=== PATIENT | female | born 1985 | race American Indian/Alaskan Native ===

== ENCOUNTER 2021-06-06 12:20 | Outpatient (CLI) | payer OTHER, SELFPAY ==
[2021-06-06 14:27] LABS: Absolute Lymphocyte Count 2.49 X10^3/uL (0.83-4.51); Absolute Neutrophil Count 2.2 X10^3/uL (2.0-7.7); Basophil# 0.01 X10^3/uL; Basophil% 0.2 % (0-1); Eosinophil# 0.05 X10^3/uL; Eosinophils% 0.9 % (0-5); Hematocrit 38.6 % (37-47); Lymphocyte # 2.49 X10^3/ul (0.83-4.51); Lymphocyte % 46.7 % (19-41); Mean Corp Hgb Conc 33.7 g/dL (32-36); Mean Corpuscular Hgb 29.4 pg (27.0-32.0); Mean Corpuscular Volume 87.3 fL (81-99); Mean Platelet Vol. 11.6 fl (6.2-12.0); Monocyte# 0.55 X10^3/uL; Monocyte% 10.3 % (0-10); NRBC Flagged by Analyzer 0 % (0-5); Neutrophil # 2.22 X10^3/uL (2.7-7.7); Neutrophil % 41.7 % (47-70); Platelet Count 236 K/mm3 (150-450); RBC Distribution Width CV 13.8 % (11.6-14.6); RBC Distribution Width SD 44.3 fl (35.1-43.9); Red Blood Count 4.42 M/mm3 (4.2-5.4); White Blood Count 5.3 K/mm3 (4.4-11.0)
[2021-06-06 15:40] LABS: HIV - WCH Non-Reactive (Nonreactive); Hepatitis B Surface Antigen Non-Reactive (Nonreactive); Hepatitis C Antibody Non-Reactive (Nonreactive); Rubella IgG Reactive (Nonreactive); Syphilis Antibodies Non-reactive
[2021-06-06 16:34] LABS: ALB/GLOB Ratio 0.9 RATIO (0.9-2.4); AST(SGOT) 13 U/L (15-37); Alanine Aminotransfer ALT/SGPT 29 U/L (13-56); Albumin, Serum 3.2 g/dL (3.2-5.0); Alkaline Phosphatase 58 U/L (45-117); Anion Gap 9 (5-15); BUN 7 mg/dL (7-18); BUN/Creat Ratio 14.5 RATIO (10-20); Calcium,Total 9.1 mg/dL (8.5-10.1); Chloride 106 mmol/L (98-107); Cholesterol 162 mg/dL (200); Creatinine, Serum 0.48 mg/dL (0.55-1.02); EST Glomerular Filtration Rate 156 mL/min (>60); Est Glom Filt Rate - Afr Amer 188 mL/min (>60); Globulin 3.7 g/dL (2.2-4.2); Glucose 73 mg/dL (74-106); High Density Lipoprotein 58 mg/dL; Potassium 3.9 mmol/L (3.5-5.1); Protein, Total 6.9 g/dL (6.4-8.2); Sodium Level 137 mmol/L (136-145); Triglycerides 177 mg/dL; Very Low Density Lipoprotein 35 mg/dL (5-40)
[2021-06-09 00:06] LABS: Chlamydia By Nucleic Acid AMP Negative (Negative)
[2021-06-09 14:16] LABS: Gonococcus By Nucleic Acid AMP Negative (Negative)
[2021-06-14 13:15] LABS: HPV APTIMA, High Risk Negative (Negative)
== END 2021-06-06 23:59 | disposition short-term general hospital (02) ==
PROVIDERS: Internal Medicine; Visit Provider Student in an Organized Health Care Education/Training Program
DX: Z34.81 Encounter for supervision of other normal pregnancy, first trimester (principal); Z12.4 Encounter for screening for malignant neoplasm of cervix
CPT/HCPCS: 36415; 80053; 80061; 85025; 86703; 86762; 86780; 86803; 87086; 87088; 87340; 87491; 87591; 87624; 88175; G0145

== ENCOUNTER 2021-06-27 14:06 | Outpatient (CLI) | payer OTHER, SELFPAY ==
--- NOTE | 2021-06-27 14:10 | US_ITS ---
STUDY: ULTRASOUND BREAST - RIGHT REASON FOR EXAM: Female, 35 years old. Right axillary lump. TECHNIQUE: Axial and longitudinal images of the RIGHT breast were performed with a high resolution ultrasound transducer. # OF IMAGES: 25 COMPARISON: None. FINDINGS: RIGHT Breast: Sonographic imaging of the right axilla was obtained. The lung most likely corresponds to a 14.1 cm x 5.6 x 2.6 cm lipoma. . US/Breast Limited Unilateral IMPRESSION: Findings suggestive of a lipoma in the right axilla corresponding to the palpable abnormality. ASSESSMENT CATEGORY: BIRADS Category 2: Benign. A letter regarding these results will be sent to the patient by the facility within 30 days. Electronically Signed: Elpidio Momin MD at 15:31 EST ,
== END 2021-06-27 23:59 | disposition home or self-care (01) ==
PROVIDERS: Visit Provider Student in an Organized Health Care Education/Training Program
DX: N63.31 Unspecified lump in axillary tail of the right breast (principal)
CPT/HCPCS: 76642

== ENCOUNTER 2021-07-11 09:12 | Outpatient (CLI) | payer OTHER, SELFPAY ==
[2021-07-11 09:57] LABS: Glucose Challenge Gest 1H 50g 85 mg/dL (70-140)
[2021-07-11 10:00] LABS: Protein, Urine (Random) 32.5 mg/dL (<11.9); Protein:Creat Ratio 111 mg/g CRE (0-200)
== END 2021-07-11 23:59 | disposition home or self-care (01) ==
LOC: WOBLAB 09:13
PROVIDERS: Visit Provider Student in an Organized Health Care Education/Training Program
DX: Z34.82 Encounter for supervision of other normal pregnancy, second trimester (principal)
CPT/HCPCS: 36415; 82570; 82950; 84156

== ENCOUNTER → 2021-11-27 | Outpatient (CLI) | payer OTHER, SELFPAY | END | disposition home or self-care (01) | LOC: LABSPEC 09:38 | PROVIDERS: Visit Provider Student in an Organized Health Care Education/Training Program | DX: Z36.85 Encounter for antenatal screening for Streptococcus B (principal) | CPT/HCPCS: 87077; 87081; 87186 ==

== ENCOUNTER → 2021-12-04 | Outpatient (CLI) | payer OTHER, SELFPAY ==
--- NOTE | 2021-12-04 13:29 | US_ITS ---
STUDY: OBSTETRICAL ULTRASOUND - BIOPHYSICAL PROFILE REASON FOR EXAM: Female, 36 years old. CHRONIC HYPERTENSION PRIOR ULTRASOUND: None. TECHNIQUE: Transabdominal TECHNICAL QUALITY: Adequate. FINDINGS: There is a single intrauterine fetus. The fetus is in a cephalic presentation. There is demonstrated cardiac activity with a heart rate of 125 bpm. There is a normal amniotic fluid volume. The largest amniotic fluid pocket measures 2.9 cm. The amniotic fluid index (ROS) is 9.3 cm. The placenta is fundal in location. There are Grade 2 placental changes. Age by LMP: 37 weeks, 2 days. LISA by LMP: 8.20.22. BIOPHYSICAL PROFILE: Breathing Movements (FBM): 2 Gross Body Movements (GBM): 2 Tone (FT): 2 Amniotic Fluid Volume (AFV): 2 TOTAL SCORE: 8 / 8 Incidental anatomic findings demonstrate a right testicular hydrocele and bilateral renal hydronephrosis of the fetus. US/Biophysical Prof W/O Non Stres IMPRESSION: Normal biophysical profile of 8/8. There is a single live intrauterine with a heart rate of 125 bpm. Age by LMP: 37 weeks, 2 days. LISA by LMP: 8.20.22. Incidental anatomic findings demonstrate a right testicular hydrocele and bilateral renal hydronephrosis of the fetus. Electronically Signed: Armando Tran MD at 16:34 EDT ,
== END | disposition home or self-care (01) ==
LOC: OPUS 13:22
PROVIDERS: Visit Provider Student in an Organized Health Care Education/Training Program
DX: O16.3 Unspecified maternal hypertension, third trimester (principal)
CPT/HCPCS: 76819

== ENCOUNTER 2021-12-07 11:03 | Outpatient (CLI) | payer OTHER, SELFPAY ==
[2021-12-07 11:10] VITALS: BMI 49.1
[2021-12-07 11:17] VITALS: BP 144/89; PULSE 77
[2021-12-07 11:34] VITALS: BP 148/72; PULSE 63
[2021-12-07 11:48] VITALS: BP 153/84; PULSE 75
[2021-12-07 12:03] VITALS: BP 147/78; PULSE 68
[2021-12-07 12:18] VITALS: BP 141/71; PULSE 70
--- NOTE | 2021-12-07 20:23 | OB.TRI.HP_ITS ---
HPI - General HPI Narrative LEE SANDOVAL, is a 36 F [facility] History (Updated 06/06/21 @ 16:[address] Nadeen Souza MD) Anemia Anxiety Carpal tunnel syndrome Depression Headache, migraine History of fracture History of pneumonia Hypertension Prediabetes Preventative health group home Medications ascorbate calcium (vitamin C) 500 mg tablet 500 mg PO DAILY 05/29/21 [History Last Taken Unknown] cholecalciferol (vitamin D3) 25 mcg (1,000 unit) capsule 25 mcg PO DAILY 05/29/21 [History Last Taken Unknown] cranberry 400 mg capsule 400 mg PO DAILY 05/29/21 [History Last Taken Unknown] elderberry fruit 200 mg capsule mg PO 05/29/21 [History Last Taken Unknown] prenat.vits,myranda,rda-[id number] 1 tab PO DAILY 05/29/21 [History Last Taken Unknown] Allergy/AdvReac Type Severity Reaction Status Date / Time niacin Allergy Severe Hives Verified 06/06/21 14:31 Penicillins Allergy Other Verified 12/07/21 11:15 pain killers Allergy Severe Nausea Uncoded 06/06/21 14:31 Family History Father Alcoholism Depression Mother Arthritis Cervical cancer Hypertension Uterine cancer Grandfather Cancer Myocardial infarction, Onset Age: 89 Sister Diabetes Grandmother Hyperlipemia Social History Smoking Status: Never smoker alcohol intake: former substance use type: does not use what type of physical activity do you participate in: walking and weight training frequency: 3-4 times per week NST FHR Rate Baby A Baseline: 120 Variability:: Moderate Accelerations:: 15 x 15 Decelerations:: None NST Reactive:: Yes Uterine Activity:: quiet Assessment & Plan (1) : QUALIFIERS: Weeks of gestation: 11 weeks Qualified Code(s): Z3A.11 - 11 weeks gestation of PLAN: Patient arrives with known chronic hypertension for NST. Chronic hypertension, nonsevere range blood pressures and asymptomatic on no medications. NST reactive. All reassuring will discharge home and follow-up at scheduled appointments
== END 2021-12-07 12:28 | disposition home or self-care (01) ==
LOC: WPOUT 11:08 → WP 11:08
PROVIDERS: Referring Provider Obstetrics & Gynecology; Visit Provider Obstetrics & Gynecology
DX: O10.911 Unspecified pre-existing hypertension complicating pregnancy, first trimester (principal); O09.511 Supervision of elderly primigravida, first trimester; Z3A.11 11 weeks gestation of pregnancy
CPT/HCPCS: 59025; 59050; 99218; G0378

== ENCOUNTER 2021-12-13 13:35 | Inpatient (IN) | payer OTHER, SELFPAY ==
[2021-12-13 15:02] VITALS: BP 137/70; PULSE 73; TEMP 36.9
[2021-12-13 15:10] LABS: Absolute Lymphocyte Count 2.11 X10^3/uL (0.83-4.51); Absolute Neutrophil Count 2.3 X10^3/uL (2.0-7.7); Basophil# 0.01 X10^3/uL; Basophil% 0.2 % (0-1); Eosinophil# 0.04 X10^3/uL; Eosinophils% 0.8 % (0-5); Hemoglobin 11.4 g/dL (12.0-15.0); Lymphocyte # 2.11 X10^3/ul (0.83-4.51); Mean Corp Hgb Conc 32.6 g/dL (32-36); Mean Corpuscular Hgb 29.6 pg (27.0-32.0); Mean Corpuscular Volume 90.9 fL (81-99); Mean Platelet Vol. 12.9 fl (6.2-12.0); Monocyte% 6.3 % (0-10); NRBC Flagged by Analyzer 0 % (0-5); Neutrophil # 2.33 X10^3/uL (2.7-7.7); Neutrophil % 48.5 % (47-70); Platelet Count 156 K/mm3 (150-450); RBC Distribution Width CV 14.6 % (11.6-14.6); RBC Distribution Width SD 48.5 fl (35.1-43.9); Red Blood Count 3.85 M/mm3 (4.2-5.4); White Blood Count 4.8 K/mm3 (4.4-11.0)
--- NOTE | 2021-12-13 16:52 | HP.PCM.OB_ITS ---
History and Physical Date of Admission: 12/13/21 HPI: 36-year-old G1, P0 at 38/4 weeks, LISA by LMP, admitted for induction of labor for chronic hypertension. Denies regular contractions, leaking of fluid, vaginal bleeding. Reports movement. Denies headache, vision changes, chest pain or shortness of breath, nausea or vomiting, diarrhea or constipation, fevers or chills. complicated by: Class III obesity, advanced maternal age, chronic hypertension on no medications [employer]ESP[employer]ESS[employer]IES history: G1 current Medical history: 1. Chronic hypertension 2. Class III obesity Surgical history: 1. Facial laceration repair as a child Medications: 1. Ascorbic acid 2. Vitamin D3 3. Cranberry 4. Elderberry 5. vitamin Family history: Noncontributory Social history: Denies tobacco, alcohol, drug use Allergies: 1. Niacin causes hives 2. Penicillin: Childhood allergy per her mother. 3. Opiates cause nausea Review of system: Negative otherwise stated above Physical exam: Vitals: BP 137/70, pulse 73, temp 98.4 ?F General: Resting in no acute distress HEENT: Normocephalic/atraumatic, PERRLA Cardiac: Regular rate Respiratory: No increased effort Abdomen: Soft, nontender, gravid Extremities: Minimal edema Musculoskeletal: Strength 5 out of 5 throughout all extremities Neurologic: Cranial nerves II through XII grossly intact, patellar reflexes 2/4 bilaterally Cervical exam: Fingertip/thick/high in office today FHR: 135/mod dariusz/+accel/no decel Glandorf: quiet labs Hepatitis B/hepatitis C negative HIV negative Syphilis negative Rubella immune O+ blood type Gonorrhea/chlamydia negative GBS positive Labs today within normal limits Assessment/plan: 36-year-old G1, P0 at 38/4 weeks, LISA by LMP, admitted for induction of labor for chronic hypertension. complicated by: Class III obesity, advanced maternal age, chronic hypertension on no medications ?Admit for induction of labor with Cytotec for chronic hypertension on no medications. Fluid assessment today on BPP was borderline low. Discussed with patient again today prior to induction being started, patient would like to proceed with induction. This reasonable as it is indicated for delivery between 38?30 9/6 weeks for chronic hypertension on no medications. ?GBS positive. Patient has childhood penicillin allergy. Will treat with Ancef. Ancef 2 g, followed by 1 g every 8 hours to be given. ? Patient desires Cord blood and tissue banking. Has kit with her. ? pelviectasis. Left last measuring 1.4 cm, right 0.4 cm. Requires pediatric follow-up. Assessment & Plan Assessment/Plan (1) Hypertension: QUALIFIERS: Hypertension type: primary hypertension Qualified Code(s): I10 - Essential (primary) hypertension (2) : (3) Chronic hypertension during , antepartum:
[2021-12-13] MEDS: miSOPROStol 25 MCG TABLET VAGINAL ×2 (16:56→21:09)
[2021-12-13] MEDS: Cefazolin 2 GM in 0.9% Normal Saline 100 ML IV (16:57)
[2021-12-13] MEDS: Lactated Ringers 1,000 ML 50 ML IV (16:57)
[2021-12-13 17:05] VITALS: BP 144/72; PULSE 78
[2021-12-13 19:27] VITALS: BP 136/76; PULSE 65
[2021-12-13 19:31] VITALS: TEMP 36.7
[2021-12-13 19:44] VITALS: BMI 49.6
[2021-12-13 23:00] VITALS: BP 134/67; PULSE 62
[2021-12-13 23:01] VITALS: TEMP 36.2
[2021-12-14] VITALS (111 sets, daily range): BP systolic 98–155; BP diastolic 46–83; PULSE 56–122; TEMP 25.9–37.1; O2SAT 80–100
[2021-12-14] MEDS: Cefazolin 1 GM/50 ML BAG IV ×3 (01:03→16:42)
[2021-12-14] MEDS: Oxytocin 30 units/NS 500 ml 30 UNITS/500 ML IV.SOLN IV (06:58)
--- NOTE | 2021-12-14 07:39 | PCM.PN.OB ---
Subjective Subjective Feeling moderate to painful contractions Objective Data Objective Data Vital Signs: Vital Signs Temp Pulse BP Pulse Ox 78.6 F L 78 128/79 H 100 12/14/21 07:33 12/14/21 07:31 12/14/21 07:23 12/14/21 07:31 Weight: 289 lb Body Mass Index (BMI) 49.6 Intake & Output: Intake and Output for Last 24 Hours 12/12/21 12/13/21 12/14/21 23:59 23:59 23:59 Intake Total 233.33 / 233.33 50 / 50 Balance 233.33 / 233.33 50 / 50 Lab / Micro Data Result Diagrams: 12/13/21 14:45 Labs: Laboratory Results - last 24 hr 12/13/21 14:45: WBC 4.8, RBC 3.85 L, Hgb 11.4 L, Hct 35.0 L, MCV 90.9, MCH 29.6, MCHC 32.6, RDW Std Deviation 48.5 H, RDW Coeff of Zack 14.6, Plt Count 156, MPV 12.9 H, Immature Gran % (Auto) 0.200, Neut % (Auto) 48.5, Lymph % (Auto) 44.0 H, [place] % (Auto) 6.3, Eos % (Auto) 0.8, Baso % (Auto) 0.2, Absolute Neuts (auto) 2.3, Absolute Lymphs (auto) 2.11, Nucleated RBC % 0 12/13/21 14:45: Blood Type O POSITIVE, Antibody Screen NEGATIVE Micro: Microbiology 12/13/21 14:45 Nasal Secretion SARS-CoV-2 Antigen (Rapid) - Final Physical Exam Const alert, oriented x3, no apparent distress, average body habitus, healthy appearing and well nourished HEENT normocephalic Eyes PERRL Neck full ROM Resp normal respiratory effort, no retractions and no use of accessory muscles GI GI Narrative: Soft, nontender, gravid Narrative: CE: 2-3/60/-2 AROM clear fluid Extremity normal to inspection, full ROM and no clubbing, cyanosis or edema Neuro moves all extremities and no focal motor deficits Psych mental status grossly normal, affect normal and speech normal Assessment & Plan (1) : PLAN: Pt seen and examined. AROM clear fluid.
[2021-12-14] MEDS: LACTATED RINGERS 500 ML 999 ML IV (11:49)
[2021-12-14] MEDS: fentaNYL-bupivacaine (epidural) 100 ML BAG EPIDURAL ×3 (13:22→23:04)
[2021-12-14] MEDS: Ondansetron 4 MG/2 ML Vial IV ×3 (14:22→23:24)
[2021-12-14] MEDS: Lactated Ringers 1,000 ML 200 ML IV ×2 (14:23→20:51)
[2021-12-14] MEDS: Lactated Ringers 1,000 ML 999 ML IV (17:25)
--- NOTE | 2021-12-14 19:42 | PCM.PN.OB ---
Subjective Subjective Patient now comfortable with epidural Objective Data Objective Data Vital Signs: Vital Signs Temp Pulse BP Pulse Ox 97.3 F L 75 131/65 H 99 12/14/21 19:30 12/14/21 19:41 12/14/21 19:35 12/14/21 19:41 Weight: 289 lb Body Mass Index (BMI) 49.6 Intake & Output: Intake and Output for Last 24 Hours 12/12/21 12/13/21 12/14/21 23:59 23:59 23:59 Intake Total 233.33 / 233.33 3099.01 / 3099.01 Balance 233.33 / 233.33 3099.01 / 3099.01 Lab / Micro Data Result Diagrams: 12/13/21 14:45 Micro: Microbiology 12/13/21 14:45 Nasal Secretion SARS-CoV-2 Antigen (Rapid) - Final Physical Exam Const alert, oriented x3, no apparent distress, average body habitus, healthy appearing and well nourished HEENT normocephalic and moist oral mucous membranes Eyes PERRL Neck full ROM Resp normal respiratory effort, no retractions and no use of accessory muscles GI GI Narrative: Soft, nontender, gravid Narrative: Cervical exam 4-5/70/-2 Extremity normal to inspection, full ROM and no clubbing, cyanosis or edema Neuro moves all extremities and no focal motor deficits Psych mental status grossly normal, affect normal, speech normal and activity/motor behavior normal Assessment & Plan (1) : PLAN: Patient seen and examined. Comfortable with epidural. Continue current management. Continue titrate Pitocin
[2021-12-15] VITALS (54 sets, daily range): BP systolic 109–140; BP diastolic 50–82; PULSE 56–109; RESP 16–17; TEMP 36–36.7; O2SAT 97–100; BMI 49.6
[2021-12-15] MEDS: Cefazolin 1 GM/50 ML BAG IV ×2 (01:25→09:01)
[2021-12-15] MEDS: Lactated Ringers 1,000 ML 200 ML IV ×3 (02:19→13:57)
[2021-12-15] MEDS: Ondansetron 4 MG/2 ML Vial IV (03:35)
[2021-12-15] MEDS: fentaNYL-bupivacaine (epidural) 100 ML BAG EPIDURAL ×3 (03:37→13:57)
[2021-12-15] MEDS: LACTATED RINGERS 500 ML 999 ML IV (03:58)
[2021-12-15] MEDS: 0.9% Saline Lock 10 ML Syringe IV ×4 (04:29→19:11)
[2021-12-15] MEDS: proCHLORPERazine 10 MG/2 ML Vial IV ×2 (04:35→12:50)
--- NOTE | 2021-12-15 07:32 | PCM.PN.OB ---
Subjective Subjective Pain well controlled epidural Objective Data Objective Data Vital Signs: Vital Signs Temp Pulse BP Pulse Ox 97.9 F 73 128/58 H 100 12/15/21 07:24 12/15/21 07:30 12/15/21 07:30 12/15/21 07:30 Weight: 289 lb Body Mass Index (BMI) 49.6 Intake & Output: Intake and Output for Last 24 Hours 12/13/21 12/14/21 12/15/21 23:59 23:59 23:59 Intake Total 233.33 / 233.33 3670.91 / 3670.91 1050 / 1050 Balance 233.33 / 233.33 3670.91 / 3670.91 1050 / 1050 Lab / Micro Data Result Diagrams: 12/13/21 14:45 Micro: Microbiology 12/13/21 14:45 Nasal Secretion SARS-CoV-2 Antigen (Rapid) - Final Physical Exam Const alert, oriented x3, no apparent distress, average body habitus, healthy appearing and well nourished HEENT normocephalic and moist oral mucous membranes Eyes PERRL Neck full ROM Resp normal respiratory effort, no retractions and no use of accessory muscles Extremity normal to inspection, full ROM and no clubbing, cyanosis or edema Neuro moves all extremities and no focal motor deficits Psych mental status grossly normal, affect normal, speech normal and activity/motor behavior normal Assessment & Plan (1) : PLAN: Patient seen and examined. Discussed options of treatment with patient including , high-dose Pitocin, continue current management risk benefits alternatives. Patient states understanding. All questions answered. Patient elects for high-dose Pitocin does not want at this time. Educated patient on risk for infection and prolonged labor. Patient states understanding and wished to proceed. We will increase Pitocin assuming category 1 tracing
--- NOTE | 2021-12-15 15:09 | EX.PCM.OBRPT ---
Maternal Data Information Final LISA: 12/23/21 Details Operative Information Date of Procedure: 12/15/21 Pre-Operative Diagnosis: Elective primary section, Gaviria intrauterine , chronic hypertension Post-Operative Diagnosis: Elective primary section, Gaviria intrauterine , chronic hypertension Indications Narrative: 36-year-old G1, P0 at 38/6 weeks, admitted for induction of labor. Patient desires primary section at this time. All risk, benefits, alternatives discussed with patient. Risk include but are not limited to: Risk of bleeding to the point transfusion, infection, injury to surrounding tissue including bowel/bladder potentially requiring prolonged Villareal catheter use, VTE, ICU admission. Patient were consented. Procedure Type: low transverse Type of Anesthesia: Epidural Estimated Blood Loss: 700 cc Fluids Replaced: 700 cc Findings Description of Procedure: Procedure: Patient taken to the operating room, epidural dose. Patient placed in the supine position with a left lateral tilt. Prepped and draped in the usual sterile fashion. Pfannenstiel skin incision made with scalpel and carried down through subcutaneous tissue. Fascia nicked on either side of the midline with scalpel and extended bluntly. Fang clamps placed superior fascial edge which was tented up and underlying rectus muscles were dissected off bluntly and sharply at midline using Benoit scissors. Fang clamps moved to inferior fascial edge which was tented up and underlying rectus muscles were dissected off bluntly and sharply at midline using Benoit scissors. Hemostats utilized to separate rectus muscle superiorly. Peritoneum entered bluntly and extended. Bladder blade placed. Low transverse uterine incision made with scalpel and extended bluntly. Hand placed into the uterine cavity and head elevated to the level of the hysterotomy. Bladder blade removed. Head delivered followed by body. No nuchal cord. Cord clamped and cut. Baby handed to nursing. Cord blood collected, through umbilical vein. Spontaneous delivery of placenta. Uterus exteriorized and cleared of all clots. Hysterotomy closed with a run locking stitch followed by second vertical imbricating stitch. Hemostatic. Uterus replaced into the abdominal cavity. Hysterotomy hemostatic with Bovie left closure edge. Bladder blade removed. Fascia closed with a running stitch. Subcutaneous tissue closed with interrupted stitch. Skin closed with running subcuticular stitch. At the end of the procedure all needle, lap, sponge counts were correct x3. Urine output: 200 cc Cord tissue collected by nursing in OR. For patient desired cord blood and tissue banking. A Gender: Male (1 minute): 8 (5 minute): 9 Complications Complications: None
--- NOTE | 2021-12-15 15:10 | PCM.PN.OB ---
Subjective Subjective Patient comfortable with epidural. Tired and exhausted. Still having some nausea and vomiting. Objective Data Objective Data Vital Signs: Vital Signs Temp Pulse BP Pulse Ox 97.2 F L 64 118/82 H 99 12/15/21 12:44 12/15/21 14:17 12/15/21 14:16 12/15/21 14:17 Weight: 131.088 kg Body Mass Index (BMI) 49.6 Intake & Output: Intake and Output for Last 24 Hours 12/13/21 12/14/21 12/15/21 23:59 23:59 23:59 Intake Total 233.33 / 233.33 3670.91 / 3670.91 4060.00 / 4060.00 Output Total 400 / 400 575 / 575 Balance 233.33 / 233.33 3270.91 / 3270.91 3485.00 / 3485.00 Lab / Micro Data Result Diagrams: 12/13/21 14:45 Micro: Microbiology 12/13/21 14:45 Nasal Secretion SARS-CoV-2 Antigen (Rapid) - Final Physical Exam Const alert, oriented x3 and no apparent distress Resp normal respiratory effort Cardio regular rate GI Inspection: gravid Narrative: /-1 Extremity Extremity Narrative: pedal edema NST FHR Rate Baby A Baseline: 125 Variability:: Moderate Accelerations:: 15 x 15 Decelerations:: None FHR Category:: Category I Uterine Activity:: q4-5 Assessment & Plan (1) Chronic hypertension during , antepartum: PLAN: 38/6w, induction of labor for chronic hypertension on medication. Induction of labor started on 12/13/2021. Patient is progressed throughout labor. Artificial rupture of membranes morning of 12/14/2021. Has been greater than 24 hours since rupture of membranes. Patient's cervical exam this morning around 8 AM was 6 cm. She is unchanged at this time. Patient is exhausted and desires section. Plan for primary section at this time. We will proceed in urgent but not emergent fashion. All risk, benefits, alternatives were discussed with the patient. Risk include but are not limited to: Risk of bleeding twin transfusion, infection, injury to surrounding tissue including bowel/bladder possibly requiring prolonged Villareal catheter use, VTE, ICU admission. Patient aware and consented. All questions answered. Pitocin turned off. 3 g Ancef preop with 500 mg azithromycin.
[2021-12-15] MEDS: Acetaminophen 500 MG Tablet PO (15:21)
[2021-12-15] MEDS: Sodium Citrate/Citric Acid 30 ML UDC PO (17:14)
[2021-12-15] MEDS: Ketorolac 30 MG/ML Syringe IV (19:11)
[2021-12-15] MEDS: Oxytocin 30 units/NS 500 ml 30 UNITS/500 ML IV.SOLN 167 UNITS IV (19:12)
[2021-12-15] MEDS: Acetaminophen 500 MG Tablet 1000 MG PO (21:42)
[2021-12-16] MEDS: Ketorolac 30 MG/ML Syringe IV ×3 (00:33→13:13)
[2021-12-16 00:36] VITALS: BP 131/59; PULSE 79; RESP 16; TEMP 36.1
[2021-12-16] MEDS: Acetaminophen 500 MG Tablet 1000 MG PO ×4 (03:38→21:19)
[2021-12-16 03:42] VITALS: BP 138/72; PULSE 85; RESP 18; TEMP 36.7
[2021-12-16] MEDS: oxyCODONE 5 MG Tablet PO ×4 (04:40→18:27)
[2021-12-16 06:46] LABS: Hematocrit 29.3 % (37-47); Hemoglobin 9.6 g/dL (12.0-15.0); Mean Corp Hgb Conc 32.8 g/dL (32-36); Mean Corpuscular Volume 91.6 fL (81-99); Mean Platelet Vol. 12.1 fl (6.2-12.0); Platelet Count 119 K/mm3 (150-450); RBC Distribution Width CV 14.7 % (11.6-14.6); RBC Distribution Width SD 49.1 fl (35.1-43.9); White Blood Count 8.8 K/mm3 (4.4-11.0)
[2021-12-16 08:28] VITALS: BP 122/51; PULSE 82; RESP 18; TEMP 36.4; O2SAT 98
--- NOTE | 2021-12-16 08:51 | PN.OBGYN_ITS ---
Subjective Subjective No overnight complaints. Pain well controlled. Objective Data Objective Data Vital Signs: Vital Signs Temp Pulse Resp BP Pulse Ox O2 Del Method 97.5 F L 82 18 122/51 H 98 Room Air 12/16/21 08:28 12/16/21 08:28 12/16/21 08:28 12/16/21 08:28 12/16/21 08:28 12/16/21 08:28 Oxygen Delivery Method Room Air Weight: 288 lb 12.889 oz Body Mass Index (BMI) 49.6 Intake & Output: Intake and Output for Last 24 Hours 12/14/21 12/15/21 12/16/21 23:59 23:59 23:59 Intake Total 3670.91 / 3670.91 5785.00 / 5785.00 Output Total 400 / 400 875 / 875 1700 / 1700 Balance 3270.91 / 3270.91 4910.00 / 4910.00 -1700 / -1700 Lab / Micro Data Result Diagrams: 12/16/21 06:40 Labs: Laboratory Results - last 24 hr 12/16/21 06:40: WBC 8.8, RBC 3.20 L, Hgb 9.6 L, Hct 29.3 L, MCV 91.6, MCH 30.0, MCHC 32.8, RDW Std Deviation 49.1 H, RDW Coeff of Zack 14.7 H, Plt Count 119 L, MPV 12.1 H Micro: Microbiology 12/13/21 14:45 Nasal Secretion SARS-CoV-2 Antigen (Rapid) - Final Physical Exam Const alert, oriented x3, no apparent distress, average body habitus, healthy appeari ng and well nourished HEENT normocephalic and moist oral mucous membranes Eyes PERRL Neck full ROM Resp normal respiratory effort, no retractions and no use of accessory muscles GI GI Narrative: Soft, nontender, uterus firm and below umbilicus Extremity normal to inspection, full ROM and no clubbing, cyanosis or edema Neuro moves all extremities and no focal motor deficits Psych mental status grossly normal, affect normal, speech normal and activity/motor behavior normal Assessment & Plan (1) delivery delivered: PLAN: Postop day 1 status post primary section for failure to progress. Breast-feeding. Pain well controlled. Likely home tomorrow
[2021-12-16] MEDS: Enoxaparin 40 MG/0.4 ML Syringe SC (09:47)
[2021-12-16] MEDS: Senna/Docusate Sodium 1 Tablet PO (09:47)
[2021-12-16 11:50] VITALS: BP 132/59; PULSE 66; RESP 18; TEMP 36.3; O2SAT 97
[2021-12-16] MEDS: 0.9% Saline Lock 10 ML Syringe IV (13:13)
[2021-12-16 15:33] VITALS: BP 127/63; PULSE 78; RESP 16; TEMP 36.4; O2SAT 98
[2021-12-16] MEDS: Ibuprofen 600 MG Tablet PO (18:18)
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
[2021-12-16 21:05] VITALS: BP 129/68; PULSE 68; RESP 16; TEMP 36.4; O2SAT 100
[2021-12-17] MEDS: Ibuprofen 600 MG Tablet PO ×3 (00:08→12:31)
[2021-12-17] MEDS: oxyCODONE 5 MG Tablet PO (00:52)
[2021-12-17 02:30] VITALS: BP 140/66; PULSE 85; RESP 16; TEMP 36.1; O2SAT 99
[2021-12-17] MEDS: Acetaminophen 500 MG Tablet 1000 MG PO ×3 (04:04→15:27)
[2021-12-17 08:17] VITALS: BP 140/73; PULSE 66; RESP 16; TEMP 36.3; O2SAT 99
--- NOTE | 2021-12-17 09:42 | PCM.DC.BLA ---
Discharge Summary Date of Admission: 12/13/21 Date of Discharge: 12/17/21 Summary: Patient arrived on 12/13/2021 for induction of labor chronic hypertension. Subsequently delivered via for nonreassuring heart tones 22/04/22. Routine postoperative recovery. Discharge home on 12/17/2021 Meaningful Use Info Meaningful Use Diagnoses (Choose all that apply): None applicable Discharge Plan Admission Admit Date/Time: 12/13/21 13:35 Primary Reason for Your Visit: Induction cHTN Attending Provider: Maria Eugenia Watters Primary Care Provider: Jacqui Bingham Primary Instructions Additional Instructions / Restrictions: Regular diet. Okay to shower. No tub baths for 2 weeks. No intercourse for 4 to 6 weeks. No heavy lifting over 25 pounds for 2 to 3 weeks. Call if fevers, chills, chest pain, shortness of breath. Follow-up 2 weeks postoperatively 4 to 6 weeks Discharge Orders/Prescriptions Prescriptions: New oxycodone 5 mg Tablet 5 mg PO Q6H PRN PRN (Reason: Pain Score 7-10) 4 Days Qty: 16 0RF Continued prenat.vits,myranda,[id number] Tablet 1 tab PO DAILY elderberry fruit 200 mg capsule PO cranberry 400 mg capsule 400 mg PO DAILY Rx Instructions: administer with a meal cholecalciferol (vitamin D3) 25 mcg (1,000 unit) capsule 25 mcg PO DAILY ascorbate calcium (vitamin C) 500 mg tablet 500 mg PO DAILY Referrals / Follow Up: Care Physician,Jacqui Primary [Primary Care Provider] - Disposition Disposition (needs filled in before D/C Order can be placed): Home, Self Care
--- NOTE | 2021-12-17 09:43 | PCM.PN.OB ---
Subjective Subjective No overnight complaints. Pain well controlled. Objective Data Objective Data Vital Signs: Vital Signs Temp Pulse Resp BP Pulse Ox O2 Del Method 97.4 F L 66 16 140/73 H 99 Room Air 12/17/21 08:17 12/17/21 08:17 12/17/21 08:17 12/17/21 08:17 12/17/21 08:17 12/17/21 08:17 Oxygen Delivery Method Room Air Weight: 288 lb 12.889 oz Body Mass Index (BMI) 49.6 Intake & Output: Intake and Output for Last 24 Hours 12/15/21 12/16/21 12/17/21 23:59 23:59 23:59 Intake Total 5785.00 / 5785.00 Output Total 875 / 875 1700 / 1700 Balance 4910.00 / 4910.00 -1700 / -1700 Lab / Micro Data Result Diagrams: 12/16/21 06:40 Micro: Microbiology 12/13/21 14:45 Nasal Secretion SARS-CoV-2 Antigen (Rapid) - Final Physical Exam Const alert, oriented x3, no apparent distress, average body habitus, healthy appearing and well nourished HEENT normocephalic and moist oral mucous membranes Eyes PERRL Neck full ROM Resp normal respiratory effort, no retractions and no use of accessory muscles Extremity normal to inspection, full ROM and no clubbing, cyanosis or edema Neuro moves all extremities and no focal motor deficits Psych mental status grossly normal, affect normal, speech normal and activity/motor behavior normal Assessment & Plan (1) delivery delivered: PLAN: Postoperative day 2 status post primary section for nonreassuring heart tones. Breast-feeding. Pain well controlled. Okay to discharge home today
[2021-12-17] MEDS: Enoxaparin 40 MG/0.4 ML Syringe SC (12:31)
[2021-12-17 14:20] VITALS: BP 141/69; PULSE 65; RESP 18; TEMP 36.2; O2SAT 98
--- NOTE | 2021-12-19 17:45 | CASEMGMT ---
Social Work Assessment Referral Date: 12/15/2021 Date of Assessment: 12/16/2021 Reason for Referral: Mental Health - Anxiety and Depression SW spoke with RN. RN states no concerns and states MOB is appropriate with baby. SW in to speak with MOB. FOB and FOB's mother present in room. MOB gave permission for SW to speak to her in front of her guest. MOB: Kelsi Marroquin G/P: 1/0 PNC: [facility] Control: MOB states none. Baby - Boy Deondre Torres Apgars: 89 Weight: 2935 G Key Ringer: Alyssa Watters MOB states for feeding she will be doing combination MOB's other Children: MOB reports no other children, this baby is first baby. Housing: MOB states no housing concerns. Transportation: MOB reports to have access to transportation. Supplies: MOB reports to have all needed supplies. Supports: MOB states that her and FOB Deondre will be support. MOB states that her MIL will also be supportive and states that she and FOB live with MIL. Education Level: MOB states that she graduated high school and had no learning difficulties. MOB reports some college. 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 MOB states that she plans to take off as long as I need. Agency Involvement: MOB states no Agency involvement and no history of CPS. Maternal Mental Health Hx: Per chart, MOB has Manic/Bipolar, Anxiety, PTSD. MOB reports to have been diagnosed with severe depression at age 10. MOB states that she is not currently taking any medications. MOB states that she has been to a Psychiatrist and therapist as a kid before. MOB reports no current suicidal/homicidal thoughts or plans. PHQ-2 score = 0 AOD history: MOB reports no history of AOD use and no use during . FOB: Deondre Torres - Time Together: MOB reports to have been together a long time.:
== END 2021-12-17 15:35 | disposition home or self-care (01) | DRG 788 ==
PROVIDERS: Admitting Provider Student in an Organized Health Care Education/Training Program; Visit Provider Student in an Organized Health Care Education/Training Program
DX: O10.02 Pre-existing essential hypertension complicating childbirth (principal); O99.214 Obesity complicating childbirth; O75.81 Maternal exhaustion complicating labor and delivery; O76 Abnormality in fetal heart rate and rhythm complicating labor and delivery; O99.824 Streptococcus B carrier state complicating childbirth; Z20.822 Contact with and (suspected) exposure to COVID-19; Z3A.38 38 weeks gestation of pregnancy; Z37.0 Single live birth
CPT/HCPCS: 59025; 59050; 85025; 85027; 86850; 86900; 86901; 87426; 99218; J7120; A4216; G0378; J2405

== ENCOUNTER → 2021-12-26 | Outpatient (CLI) | payer OTHER, SELFPAY ==
--- NOTE | 2021-12-26 14:33 | VDLE_ITS ---
[id number] VL^VDUL^Venous Duplex US- Unilateral [id number] Reason For Study: Effusion left foot, pain in left foot Procedure LEFT This is a venous duplex using B-mode, color GSV is normal. flow and spectral Doppler. CFV is compressible, spontaneous, phasic, Exam performed in department. competent, and demonstrates normal A preliminary report was called and/or faxed augmentation. to [facility]. FV is compressible, spontaneous, phasic, competent and demonstrates normal augmentation. FV distal visualized with color only, appears patent. Patient unable to tolerate compression. POP V is compressible, spontaneous, phasic, competent and demonstrates normal augmentation. T/P Trunk is compressible. PTV is compressible. LT PerV is compressible. VL/Venous Duplex US, Unilateral Interpretation Summary There is no evidence of left lower extremity deep vein thrombosis. Left great s aphenous vein appears patent and compressible segmentally. See technical limitation of visualizing th e left distal femoral vein with color inspection only as the patient was unable to tolerate compressi on Ordering Physician: Kemar Watters Performed By: Katlin Cummings RVT
== END | disposition home or self-care (01) ==
LOC: CVS 14:32
PROVIDERS: PCP Nurse Practitioner Primary Care; Referring Provider Obstetrics & Gynecology; Visit Provider Obstetrics & Gynecology
DX: M79.672 Pain in left foot (principal); M25.475 Effusion, left foot
CPT/HCPCS: 93971

== ENCOUNTER 2022-01-08 02:22 | Emergency (ER) | payer OTHER, SELFPAY ==
[2022-01-08 02:24] VITALS: BP 155/98; PULSE 73; RESP 18; TEMP 36.6; O2SAT 100; BMI 46.8
--- NOTE | 2022-01-08 02:45 | ED.VIS.GI ---
HPI HPI - GI History of Present Illness Chief Complaint: Abd Pain Abdominal Pain/Flank Pain Onset: Today and Hours (3) Context: Sudden Onset Timing: Continuous Quality: Aching and - (Pressure) Location: Epigastric Current Severity: Severe Worsened by: - (Deep breathing) Relieved by: Nothing Nausea/Vomiting/Emesis GI Symptom: Positive for Nausea; Negative for Vomiting Diarrhea/Melena/Hematochezia GI Symptom: Negative for Diarrhea, Melena or Hematochezia Associated Symptoms Associated Symptoms: Negative for Dysuria, Frequency or Hematuria Narrative Narrative: Who presents with abdominal pain that began today. Patient states it began approximately 3 hours prior to arrival. Patient states her pain is over the epigastric area and radiates into her back between her shoulder blades. Patient describes it as aching and pressure. Patient states it is worse with deep breathing. Patient states nothing makes it better. Patient admits to nausea but denies any vomiting. Patient denies any diarrhea, melena, or hematochezia. Patient denies any dysuria, frequency, or hematuria. Patient denies any abnormal vaginal bleeding or discharge. [facility] Medical History (Updated 01/08/22 @ 05:[address] Randell Yanez, ) Anemia Anxiety Carpal tunnel syndrome Depression Headache, migraine History of fracture History of pneumonia Hypertension Oligohydramnios Prediabetes [facility] Medications ascorbate calcium (vitamin C) 500 mg tablet 500 mg PO DAILY supplement 05/29/21 [History Last Taken 12/12/21] cholecalciferol (vitamin D3) 25 mcg (1,000 unit) capsule 25 mcg PO DAILY supplement 05/29/21 [History Last Taken 12/12/21] cranberry 400 mg capsule 400 mg PO DAILY Supplement 05/29/21 [History Last Taken 12/12/21] elderberry fruit 200 mg capsule mg PO Check with primary doctor 05/29/21 [History Last Taken 12/12/21] prenat.vits,myranda,qag-sgtz-exbfm 1 tab PO DAILY 05/29/21 [History Last Taken 12/12/21] oxycodone 5 mg tablet 5 mg PO Q6H PRN PRN Pain Score 7-10 4 days #16 tabs 12/17/21 [Rx Last Taken Unknown] Allergy/AdvReac Type Severity Reaction Status Date / Time niacin Allergy Severe Hives Verified 01/08/22 02:27 Penicillins Allergy Other Verified 01/08/22 02:27 pain killers Allergy Severe Nausea Uncoded 12/13/21 19:34 Family History Father Alcoholism Depression Mother Arthritis Cervical cancer Hypertension Uterine cancer Grandfather Cancer Myocardial infarction, Onset Age: 89 Sister Diabetes Grandmother Hyperlipemia Surgical History (Updated 01/08/22 @ 02:[address] Randell Yanez DO) H/O section Social History Smoking Status: Never smoker alcohol intake: former substance use type: does not use what type of physical activity do you participate in: walking and weight training frequency: 3-4 times per week ROS ROS ED Constitutional Constitutional ED: Denies chills or fever(s) Eyes Eyes: Denies blurry vision or change in vision ENT ENT ED: Denies rhinorrhea or sore throat Cardiovascular Cardiovascular: Reports chest pain; Denies palpitations Respiratory/Chest Respiratory/Chest: Reports dyspnea; Denies cough Gastrointestinal Gastrointestinal: Reports abdominal pain and nausea; Denies vomiting Genitourinary Genitourinary ED: Denies dysuria or hematuria Musculoskeletal Musculoskeletal: Reports back pain; Denies neck pain Integumentary Denies abscess or rash Neurologic Neurologic: Reports headache(s); Denies weakness Allergic/Immunologic Allergic/Immunologic ED: Denies mouth swelling or urticaria EXAM Physical Exam Const Vital Signs: 01/08/22 02:24 01/08/22 04:23 Temperature 97.9 F Temperature Source Oral Pulse Rate 73 Respiratory Rate 18 17 Blood Pressure 155/98 H Blood Pressure Mean 117 Pulse Ox 100 Oxygen Delivery Method Room Air Room Air Positive well nourished, well developed and obese General Appearance ED: well developed and NAD Nutritional Appearance: obese HEENT Reports moist mucous membranes Neck supple and no JVD Resp normal respiratory effort and clear to auscultation bilaterally Cardio regular rate, regular rhythm and no murmurs GI normal to inspection, nondistended, normoactive bowel sounds Palpation: soft and tender epigastric; Negative for guarding or rebound tenderness present Extremity normal to inspection General Extremety ED: Negative for edema or tenderness General Extremity: Negative for edema Neuro oriented x3, CN's II-XII intact bilaterally and no sensory deficits noted Sensorium / Orientation: alert Motor Exam: strength 5/5 throughout Psych mental status grossly normal Skin no rashes or lesions noted MDM MDM MDM Narrative Medical decision making narrative: Patient was given IV fluids and Toradol. Patient declined morphine because she is breast-feeding. CBC was within normal limits. Comprehensive metabolic profile was within normal limits. Lipase was normal. Urinalysis does not show any evidence of urinary tract infection. CT scan of the abdomen and pelvis showed some layering in the gallbladder this may be due to sludge or tiny stones. There is no evidence of acute cholecystitis. There are dermoid cyst in the adnexa. This was interpreted by the radiologist and reviewed by myself. Patient was advised of her findings. Patient does not want any opiate pain medication because she is breast-feeding. Patient states she will take Tylenol or ibuprofen at home. Patient was instructed to start with a bland diet and advance as tolerated. Patient was instructed to avoid fried foods, greasy foods, and fatty foods. Patient was instructed to follow-up with her primary care physician in 5 to 7 days. Patient understood and was agreeable with the plan. All questions were answered. Lab Data Attestation: I reviewed the patient's lab results. Labs: Laboratory Results - last 24 hr 01/08/22 01/08/22 01/08/22 02:45 02:45 03:05 WBC 5.8 RBC 4.12 L Hgb 12.2 Hct 38.4 MCV 93.2 MCH 29.6 MCHC 31.8 L RDW Std Deviation 49.0 H RDW Coeff of Zack 14.3 Plt Count 236 MPV 11.5 Immature Gran % (Auto) 0.200 Neut % (Auto) 27.6 L Lymph % (Auto) 63.0 H [place] % (Auto) 6.6 Eos % (Auto) 2.1 Baso % (Auto) 0.5 Absolute Neuts (auto) 1.6 L Absolute Lymphs (auto) 3.64 Nucleated RBC % 0 Sodium 142 Potassium 3.6 Chloride 108 H Carbon Dioxide 28.0 Anion Gap 6 BUN 10 Creatinine 0.72 Estim Creat Clear Calc 94.17 Est GFR (MDRD) Af Amer 119 Est GFR (MDRD) Non-Af 98 BUN/Creatinine Ratio 13.9 Glucose 99 Calcium 9.0 Total Bilirubin 0.20 AST 26 ALT 49 Alkaline Phosphatase 77 Total Protein 7.2 Albumin 3.4 Globulin 3.8 Albumin/Globulin Ratio 0.9 Lipase 241 Urine Color Yellow Urine Clarity Clear Urine pH 6.5 Ur Specific [place] 1.010 Urine Protein Negative Urine Glucose (UA) Normal Urine Ketones Negative Urine Occult Blood 10 H Urine Nitrite Negative Urine Bilirubin Negative Urine Urobilinogen Normal Ur Leukocyte Esterase Negative Urine RBC 0 SEEN Urine WBC 0 SEEN Ur Squamous Epith Cells 0 SEEN Urine Bacteria 0 SEEN Urine Mucus 0 SEEN Radiography Diagnostic Testing: Clinical Impression(s) from Imaging Studies Abdomen/Pelvis CT 01/08/22 02:48 IMPRESSION: Increased density layering in the dependent portion of the gallbladder due to sludge and possible tiny stones. No findings of acute cholecystitis or biliary ductal dilatation. 2.3 cm right adnexal dermoid. 9.7 cm dermoid within the right midabdomen with a band of soft tissue attenuation tracking from the dermoid into the left adnexa indicating a left adnexal origin; no surrounding edema or ascites about the dermoid to indicate torsion at this time, but clinical correlation is suggested. Normal appendix. No evidence for small bowel obstruction. Electronically Signed: Florentin Solorio MD at 5:21 EDT , Discharge Plan Triage Chief Complaint: Abd Pain ED Provider: Randell Yanez Dx/Rx/DC Orders Clinical Impression: Abdominal pain, Morbid obesity with BMI of 45.0-49.9, adult Instructions: ED Abdominal Pain Gallstone Poss Prescriptions: No Action prenat.vits,myranda,[id number] Tablet 1 tab PO DAILY elderberry fruit 200 mg capsule PO cranberry 400 mg capsule 400 mg PO DAILY Rx Instructions: administer with a meal cholecalciferol (vitamin D3) 25 mcg (1,000 unit) capsule 25 mcg PO DAILY ascorbate calcium (vitamin C) 500 mg tablet 500 mg PO DAILY oxycodone 5 mg Tablet 5 mg PO Q6H PRN PRN (Reason: Pain Score 7-10) 4 Days Qty: 16 0RF Primary Care Provider: Homer Vick NP Referrals: Homer Vick NP, [facility] [Primary Care Provider] - 5-7 Days Disposition Disposition: Home, Self Care
--- NOTE | 2022-01-08 02:48 | CT_ITS ---
EXAM: CT ABDOMEN AND PELVIS WITH INTRAVENOUS CONTRAST CLINICAL INDICATION: Abdominal pain -- IV PO Contrast TECHNIQUE: Helically acquired images were obtained of the abdomen and pelvis with intravenous contrast. This CT exam was performed using one or more of the following dose reduction techniques: automated exposure control, adjustment of the mA and/or kV according to patient size, and/or use of iterative reconstruction technique. This report was created using [employer] report generation technology. CONTRAST: Oral and amp; IV Gastrografin and amp; 100mL [id number] RADIATION DOSE: Total DLP: 1064.21 mGy-cm. COMPARISON: Pelvic ultrasound of 12/04/2021. FINDINGS: LOWER THORAX: No coronary artery calcification is visualized. Lung bases are clear. No cardiomegaly. No significant pericardial effusion. ABDOMEN: LIVER: Liver demonstrates minimal fatty infiltration. GALLBLADDER AND BILE DUCTS: The gallbladder is normal in size. Increased echogenicity layers in the dependent portion of the gallbladder consistent with sludge and possible stones. No wall thickening, pericholecystic stranding, pericholecystic fluid or biliary ductal dilatation identified. PANCREAS: Unremarkable. No focal cystic or solid mass. SPLEEN: Unremarkable. Normal size without focal cystic or solid mass. ADRENALS: Unremarkable. No nodules. KIDNEYS AND URETERS: Unremarkable. Normal renal size and position. No hydronephrosis. No renal or obstructing ureteral stones. STOMACH AND BOWEL: No gastric mural thickening, periduodenal inflammatory changes of distended small bowel loops. No findings of colitis, diverticulitis or small bowel obstruction. PELVIS: APPENDIX: Normal. No evidence of acute appendicitis. BLADDER: The urinary bladder is nearly empty. REPRODUCTIVE: The patient is no longer . The uterus is minimally prominent. In the right adnexa is a 2.3 cm ovoid thin-walled fat lobule with a soft tissue rim, consistent with a small dermoid. More superiorly, medial to the ascending colon, and extending to the level of the right renal lower pole, there is a 9.7 cm ovoid circumscribed fat-containing mass which shows partially calcified rim and ill-defined internal soft tissue attenuation, indicating a larger dermoid. This dermoid displaces adjacent small bowel loops but causes no small bowel obstruction or ureteral obstruction. A band of soft tissue attenuation measuring 13 mm in transverse diameter extends from the dermoid into the left adnexal region indicating the dermoid has arisen within the left adnexa. There is no thickening of the wall of this dermoid or surrounding fat stranding to indicate that it is torsed. ABDOMEN and PELVIS: INTRAPERITONEAL SPACE: Unremarkable. No ascites or other fluid collection. No free air. BONES/JOINTS: Mild degenerative spurring about the lower thoracic disc spaces. Moderate narrowing of the inferior left neural foramen at L5/S1 and a broad-based left foraminal disc protrusion and surrounding posterolateral osteophytes. Sclerosis noted about both SI joints without erosions, consistent with osteitis condensans ilii. No suspicious lytic abnormality. SOFT TISSUES: Unremarkable. No discrete abdominal or pelvic wall hernia. VASCULATURE: Unremarkable. Abdominal aorta is non-dilated. LYMPH NODES: Unremarkable. No enlarged lymph nodes. CT/Abdomen/Pelvis WITH Contrast IMPRESSION: Increased density layering in the dependent portion of the gallbladder due to sludge and possible tiny stones. No findings of acute cholecystitis or biliary ductal dilatation. 2.3 cm right adnexal dermoid. 9.7 cm dermoid within the right midabdomen with a band of soft tissue attenuation tracking from the dermoid into the left adnexa indicating a left adnexal origin; no surrounding edema or ascites about the dermoid to indicate torsion at this time, but clinical correlation is suggested. Normal appendix. No evidence for small bowel obstruction. Electronically Signed: Florentin Solorio MD at 5:21 EDT ,
[2022-01-08 02:59] LABS: Absolute Lymphocyte Count 3.64 X10^3/uL (0.83-4.51); Absolute Neutrophil Count 1.6 X10^3/uL (2.0-7.7); Basophil# 0.03 X10^3/uL; Basophil% 0.5 % (0-1); Eosinophil# 0.12 X10^3/uL; Eosinophils% 2.1 % (0-5); Hematocrit 38.4 % (37-47); Hemoglobin 12.2 g/dL (12.0-15.0); Lymphocyte # 3.64 X10^3/ul (0.83-4.51); Mean Corp Hgb Conc 31.8 g/dL (32-36); Mean Corpuscular Hgb 29.6 pg (27.0-32.0); Mean Corpuscular Volume 93.2 fL (81-99); Mean Platelet Vol. 11.5 fl (6.2-12.0); Monocyte# 0.38 X10^3/uL; Monocyte% 6.6 % (0-10); NRBC Flagged by Analyzer 0 % (0-5); Neutrophil % 27.6 % (47-70); Platelet Count 236 K/mm3 (150-450); RBC Distribution Width CV 14.3 % (11.6-14.6); Red Blood Count 4.12 M/mm3 (4.2-5.4); White Blood Count 5.8 K/mm3 (4.4-11.0)
[2022-01-08] MEDS: 0.9% Normal Saline 1,000 ML 1000 ML IV (03:01)
[2022-01-08] MEDS: Ondansetron 4 MG/2 ML Vial IV (03:01)
[2022-01-08 03:15] LABS: Albumin, Serum 3.4 g/dL (3.2-5.0); BUN 10 mg/dL (7-18); BUN/Creat Ratio 13.9 RATIO (10-20); Creatinine, Serum 0.72 mg/dL (0.55-1.02); EST Glomerular Filtration Rate 98 mL/min (>60); Est Glom Filt Rate - Afr Amer 119 mL/min (>60); Estimated Creatinine Clearance 94.17 ml/min; Glucose 99 mg/dL (74-106); Protein, Total 7.2 g/dL (6.4-8.2)
[2022-01-08 03:16] LABS: ALB/GLOB Ratio 0.9 RATIO (0.9-2.4); AST(SGOT) 26 U/L (15-37); Alanine Aminotransfer ALT/SGPT 49 U/L (13-56); Alkaline Phosphatase 77 U/L (45-117); Anion Gap 6 (5-15); Chloride 108 mmol/L (98-107); Globulin 3.8 g/dL (2.2-4.2); Lipase 241 U/L (73-393); Potassium 3.6 mmol/L (3.5-5.1); Sodium Level 142 mmol/L (136-145)
[2022-01-08 03:19] LABS: Bacteria 0 SEEN /hpf (None Seen); Mucous, Urine 0 SEEN /hpf (<or=2+); Red Blood Cells-Urine 0 SEEN /hpf (0-5); Squamous Epithelial Cells - UA 0 SEEN /hpf (5-10); White Blood Cells 0 SEEN /hpf (0-5)
[2022-01-08 03:37] LABS: Color, Urine Yellow (Yellow); Glucose, Dipstick Normal (Normal); Ketone-Dipstick Negative (Negative); Leukocyte Esterase-Dipstick Negative /ul (Negative); Nitrite-Dipstick Negative (Negative); Occult Blood-Urine 10 /ul (Negative); Protein-Dipstick Negative (Negative); Urine Bilirubin Dipstick Negative (Negative); Urine Clarity Clear (Clear); Urine Urobilinogen Normal (Normal); Urine pH 6.5 (5.0 - 8.0)
[2022-01-08 04:23] VITALS: RESP 17
== END 2022-01-08 05:48 | disposition home or self-care (01) ==
PROVIDERS: Emergency Provider Emergency Medicine; PCP Nurse Practitioner Primary Care; Visit Provider Emergency Medicine
DX: R10.13 Epigastric pain (principal); E66.01 Morbid (severe) obesity due to excess calories; D28.7 Benign neoplasm of other specified female genital organs; I10 Essential (primary) hypertension; R11.0 Nausea; R73.03 Prediabetes; R07.9 Chest pain, unspecified; R06.00 Dyspnea, unspecified
CPT/HCPCS: 74177; 80053; 81001; 83690; 85025; 96361; 96374; 96375; 99283; J7030; Q9967; A4216; J2405